=== PATIENT | male | born 1950 | race Caucasian/White ===

== ENCOUNTER → 2023-09-12 10:02 | Outpatient (BNVA) | payer MEDICARE, SELFPAY | PROVIDERS: PCP Family Medicine Adult Medicine; Visit Provider Family Medicine Adult Medicine | DX: E11.69 Type 2 diabetes mellitus with other specified complication (principal); I10 Essential (primary) hypertension; I25.810 Atherosclerosis of coronary artery bypass graft(s) without angina pectoris; E78.5 Hyperlipidemia, unspecified | CPT/HCPCS: 80053; 80061; 83036; 84443; 85025 ==

== ENCOUNTER → 2024-01-24 16:11 | Outpatient (BNVA) | payer MEDICARE, SELFPAY | PROVIDERS: PCP Family Medicine Adult Medicine; Visit Provider Internal Medicine Cardiovascular Disease | DX: R07.9 Chest pain, unspecified (principal) | CPT/HCPCS: 93005; 99205 ==

== ENCOUNTER 2024-02-06 08:23 | Outpatient (CLI) | payer MEDICARE, SELFPAY ==
--- NOTE | 2024-02-06 08:30 | USCV_ITS ---
Isaias Mingo Age: 73 Gender: M : 1950 Exam Date: 02/06/2024 08:53 Ordering Phys: Agatha Cardozo MD ([email or web address]) Technologist: ANUJ [place] [facility] [place]: murmur BP: 94 / 62 HR: 77 Rhythm: Sinus Technical Quality: Adequate MEASUREMENTS (Male / Female) Normal Values 2D ECHO LV Diastolic Diameter PLAX 4.9 cm 4.2 - 5.9 / 3.9 - 5.3 cm IVS Diastolic Thickness 1.0 cm 0.6 - 1.0 / 0.6 - 0.9 cm IVS Systolic Thickness 1.9 cm LVPW Diastolic Thickness 1.3 cm 0.6 - 1.0 / 0.6 - 0.9 cm LVPW Systolic Thickness 2.1 cm LVOT Diameter 2.0 cm LV Ejection Fraction 2D Teich 59.7 % LV Ejection Fraction MOD 4C 31.3 % LV Ejection Fraction MOD 2C 50.3 % LV Ejection Fraction 2C AL 53.7 % LA Diameter 3.9 cm RA Systolic Volume 4C AL 17.6 ml RA Systolic Volume 4C MOD 16.6 ml LA Sys Volume AL 28.1 cm cubed LA Sys Volume Index AL 12.2 cm cubed/m squared Aorta at Sinotubular Diameter 2.6 cm IVC Diameter 1.5 cm M-MODE LA Ao Ratio MM 1.3 AV Cusp Separation MM 1.7 cm DOPPLER AV Peak Velocity 90.0 cm/s LVOT Peak Velocity 83.0 cm/s AV Area Cont Eq vti 2.7 cm squared AV Area Cont Eq pk 2.9 cm squared MV Peak Velocity 109.0 cm/s MV Area PHT 4.7 cm squared Mitral E to A Ratio 0.7 TR Peak Velocity 108.0 cm/s TR Peak Gradient 4.7 mmHg TR Mean Velocity 83.0 cm/s TR Mean Gradient 3.1 mmHg TR Velocity Time Integral 30.5 cm TV Peak E Velocity 55.0 cm/s Right Atrial Pressure 3.0 mmHg Pulmonary Artery Systolic Pressu 7.7 mmHg PV Peak Velocity 98.0 cm/s RV Ejection Time 0.3 s FINDINGS Left Ventricle Mild diffuse hypokinesis of the left ventricle with an ejection fraction of 50%. Mild concentric left-ventricular hypertrophy.Grade I/IV diastolic dysfunction (abnormal relaxation filling pattern), normal to mildly elevated filling pressures. Right Ventricle The right ventricle is normal in size and function. Right Atrium The right atrium is normal in size. Left Atrium Mildly increased left atrial size. Mitral Valve Trace mitral valve regurgitation. Aortic Valve No gross abnormalities noted Tricuspid Valve No gross abnormalities noted Pulmonic Valve Pulmonic valve not well visualized. Pericardium Normal pericardium without effusion. Aorta Normal ascending aorta dimension. IVC Normal inferior vena cava. CONCLUSIONS Mild diffuse hypokinesis of the left ventricle with an ejection fraction of 50%. Mild concentric left-ventricular hypertrophy.Grade I/IV diastolic dysfunction (abnormal relaxation filling pattern), normal to mildly elevated filling pressures. Mildly increased left atrial size. Trace mitral valve regurgitation. There is no pericardial effusion. There are no intracardiac masses. No similar previous studies are available for comparison Dr Agatha Cardozo MD [facility] (Electronically Signed) Final Date: 09 February 2024 20:33 S
== END 2024-02-06 08:24 | disposition home or self-care (01) ==
LOC: RAD 08:23
PROVIDERS: PCP Family Medicine Adult Medicine; Visit Provider Internal Medicine Cardiovascular Disease
DX: I50.30 Unspecified diastolic (congestive) heart failure (principal); R06.09 Other forms of dyspnea
CPT/HCPCS: 93306

== ENCOUNTER 2024-03-13 07:21 | Outpatient (CLI) | payer MEDICARE, SELFPAY ==
--- NOTE | 2024-03-13 | ECG_ITS ---
[facility] Test Date: 2024-03-13 Pat Name: Mingo Esparza Department: Room: Gender: Male Perianesthesia Nurse: : 1950 Requested By: Agatha Cardozo Order Number: [id number] Demetrius MD: John Regan M.D. Interpretive Statements LEXISCAN Procedure: At the baseline, the blood pressure was 138/77 mmHg with a heart rate of 75 bpm. The electrocardiogram showed normal sinus rhythm, normal axis with baseline ST depressions in inferior leads and leads V5 and V6. The Lexiscan was infused over a period of 20 seconds. A total of 0.4 mg of Lexiscan was infused. The stress phase was continued for a total of 5 minutes. Heart rate was at the end of stress phase was 84 bpm and a blood pressure of 142/73 mmHg. The EKG at the peak infusion revealed normal sinus rhythm with no significant ST-T wave changes. Sestamibi was injected 20 seconds after the Lexiscan infusion. Blood pressure at the end of recovery phase was 118/66 mmHg with a heart rate of 81 bpm. Conclusion: 1. Normal EKG response to Lexiscan infusion 2. No Lexiscan induced chest pain or cardiac arrhythmia. 3. Normal blood pressure and heart rate response. 4. Sestamibi/sestamibi perfusion scan pending; see separate report. Electronically Signed On 03-22-2024 14:20:59 CDT by John Regan M.D. [id number]
[2024-03-13 07:25] VITALS: BMI 33.3
--- NOTE | 2024-03-13 08:20 | NMCV_ITS ---
NM louis perf SPECT r/s* [id number] Mingo Esparza Age: 73 Gender: M : 1950 Exam Date: 03/13/2024 08:09 Ordering Phys: Agatha Cardozo MD ([email or web address]) Technologist: GIOVANY West Exam Location: [facility] Indications: CP, CAD STRESS TEST [facility] IMAGE PROTOCOL Rest/Stress 1 Lexiscan Day Radiopharmaceutical Dose (mCi) Administration Site Administered by Rest: Tc-99m 10.9 IV GIOVANY West Sestamibi Stress:Tc-99m 32.9 IV GIOVANY West Sestamibi Rest: 13-Mar-2024 60 Discovery 630 Stress: 13-Mar-2024 30 Discovery 630 0.4mg Lexiscan. Images obtained in supine and prone position. SPECT RESULTS Technical Quality: Good Raw Data Analysis: Normal Image Corrections: No attenuation or motion correction applied Summed Stress Score: 28 Summed Rest Score: 10 Summed Difference Score: 18 PERFUSION FINDINGS There is severe in intensity, large area of reversible perfusion defect seen in lateral wall. This is consistent with large area of ischemia seen in left circumflex artery territory. There is a large area of mostly reversible perfusion defect seen in mid anterior and apical anterior wall. This is consistent with medium sized area of large area of ischemia in LAD territory. Medium sized area of partially reversible perfusion defect is seen in inferior wall. This is consistent with medium sized area of prior infarct with some drake-infarct ischemia in RCA territory. FUNCTIONAL RESULTS (calculated via Gated SPECT) Stress Image LV EF (%): 38 Stress EDV (mL):106 TID: 1.25 Stress ESV (mL):66 FUNCTIONAL FINDINGS: LV systolic function is moderately reduced. TID ratio is elevated at 1.25. IMPRESSIONS 1. Abnormal myocardial perfusion imaging consistent with multivessel coronary artery disease. 2. Large area of ischemia is seen in left circumflex artery territory. 3. Large area of ischemia seen in LAD territory. 4. Medium sized area of prior infarct with some drake-infarct ischemia in RCA territory. 5. LV systolic function is moderately reduced with EF of 38%. 6. TID ratio is elevated at 1.25. This likely represents multivessel coronary artery disease. John Regan MD (Electronically Signed) Final Date: 13 March 2024 11:45 S
[2024-03-13] MEDS: regadenoson 0.4 Mg/5 ml Syringe IVP (09:05)
[2024-03-13 09:21] VITALS: BP 112/64; PULSE 65
== END 2024-03-13 07:22 | disposition home or self-care (01) ==
PROVIDERS: PCP Family Medicine Adult Medicine; Visit Provider Internal Medicine Cardiovascular Disease
DX: Z98.61 Coronary angioplasty status (principal); R94.39 Abnormal result of other cardiovascular function study; I50.20 Unspecified systolic (congestive) heart failure
CPT/HCPCS: 36415; 78452; 93017; 96374; A9500; J2785

== ENCOUNTER 2024-03-19 06:02 | Outpatient (CLI) | payer MEDICARE, SELFPAY ==
[2024-03-19] VITALS (26 sets, daily range): BP systolic 116–151; BP diastolic 58–89; PULSE 55–83; RESP 8–24; TEMP 36.4–36.7; O2SAT 95–99; BMI 35.1
--- NOTE | 2024-03-19 06:00 | XACV_ITS ---
Exam Room: 2 Ht: 175 cm Wt: 108 kg BSA: 2.33 m2 Gender: Male : 1950 Any Known Allergies: Other Exam Priority: Routine Procedure(s): Procedure Description: Diagnostic procedure Procedure Description: Venous Graft Catheterization Procedure Description: Coronary Angiography Cas SHORT; Diagnostic Cath Status: Elective Diagnostic Findings * INDICATION: Worsening angina/ abnormal stress test. * Left Main has mild luminal irregularities. * Left Anterior Descending has patent prior stents. * Proximal Right Coronary Artery: chronic total occlusion, FELIX: 0 flow. Distal vessel has collateral blood supply via LAD. * Proximal Circumflex to Mid Circumflex: chronic total occlusion, FELIX: 0 flow. * Bypass Grafts: SVG to LAD is occluded. SVG to left circumflex artery is occluded. SVG to RCA is occluded.. * Proximal Circumflex: subtotal occlusion, FELIX: 1 flow. * Coronary angiography shows right dominance. Conclusions 1. Only patent blood supply is from LAD which has multiple stents. Collaterals to other territories. SVG grafts to all territories are occluded.. 2. Peripheral artery disease noted on femoral angigoram with left SFA appears occluded. Outpatient workup. 3. Patient has prior CABG. Recommendations * Aggressive medical therapy. Can uptitrate antianginal medications. Pressures Phase:Rest AO : 141 / 68 ( 92 ) @ 10:22:00 AM 93 / 61 ( 76 ) @ 10:22:00 AM 109 / 72 ( 91 ) @ 10:27:00 AM Clinical Evaluation EBL: 5mL-10mL Procedural Details Procedure Consent Obtained. Current Diagnosis : Chest Pain. Pre-Procedure Time Out. Identified patient by full name and date of as verbalized by the patient/guarantor. Does the consent match the physician's order: Yes. Accurate & Complete Informed Consent: Yes. Inpatient/Outpatient History & Physical on Chart: Yes. If H&P is completed, is and addenduem needed: No; If yes, is the addendum complete: N/A. Visualize and Verify Site with Patient/Guarantor: N/A. Relevant Radiology Images available: Yes. Pre-op teaching completed and patient verbalized understanding. The risks, benefits, and alternatives of sedation and/or procedure were discussed by physician. The patient agrees to continue. Procedure started. [facility] Clinical Fraility Score: 3: Managing Well. 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 Chest Pain Symptom Assessment: Atypical Angina. Correct patient, site and procedure confirmed by cath team. Current diagnosis: Chest Pain. PERRLA. Strong, equal hand assistant director of security bilaterally. Lungs clear x 5 lobes. IV Site on Arrival: 20 gauge in the left forearm. IV Fluids: 0.9% NaCl at KVO. 0 mL infused prior to rags laborer. Pre Procedural Pulses: bilateral dorsalis pedis was Doppled. Pre Procedural Pulses: bilateral posterior tibial was Doppled. Pre Procedural Pulses: bilateral radial was 3+. Oxygen started at 2liters/min via nasal canula. bilateral groins was prepped with chloroprep then draped in the usual sterile fashion. Physician arrived. SVG to RCA occluded. Physician scrubbed in. Immediate Pre-Procedure Time Out. Correct Patient: Yes; Correct Procedure: Yes; Correct Site: Yes; Correct Patient Position: Yes; Correct Supplies: Yes; Dried Flammable Prep: Yes; Blood Products Available: N/A;. Lidocaine 1% infiltrated to the right groin. Arterial access obtained with micropuncture set. Wire unable to advance. Wire and needle out. Arterial access obtained with micropuncture set. Contrast injected through the access needle. Wire unable to advance. Wire and needle out. Dr. Regan assisting with arterial access. Ultrasound being used to obtain arterial access. Lidocaine 1% infiltrated to the left groin. Arterial access obtained with micropuncture set. Dr. Cardozo scrubbed out. A 5 malian JL4 catheter in over wire. Multiple views taken of left coronary artery. Catheter removed over the standard wire. A 5 malian JR4 catheter in over wire. Multiple views taken of right coronary artery. SVG to LAD occluded. SVG to OM occluded. Catheter removed over the standard wire. A Left femoral angiogram was performed to determine safe placement of closure device. A Mynx was successful obtaining hemostatsis at the Left Femoral artery insertion site. Post Procedure: Pulses reassessed and unchanged. PERRLA. Strong, equal hand assistant director of security bilaterally. No VTE prophylaxis required. Medication's Wasted: Heparin = 6000 units. Total IV fluids: 200 mL. Complications: None. Post-op diagnosis: CAD. Estimated blood loss: 5mL-10mL. Responsiveness - Normal response to verbal stimuli; alert and oriented, PERRLA. Airway - Unaffected, no intervention required; spontaneous ventilation. Circulation: W/N/L, pulses unchanged. Nausea/Vomiting: No. Vital chart was stopped. Procedure completed. Patient transferred by bed to ICU. Access Site Site: Left Femoral artery Sheath Size: 6 Fr Hemostasis Method: Mynx Hemostasis Success: Successful Procedure Medications Start: 8:47 AM Stop: 8:47 AM Medication: Fentanyl Amount: 50 mcg Route: I.V. Start: 8:56 AM Stop: 8:56 AM Medication: 0.9% Saline Amount: 150 ml/hr Route: I.V. drip Start: 8:47 AM Stop: 8:47 AM Medication: Versed Amount: 1 mg Route: I.V. Start: 9:29 AM Stop: 9:29 AM Medication: Versed Amount: 1 mg Route: I.V. Start: 9:30 AM Stop: 9:30 AM Medication: Fentanyl Amount: 50 mcg Route: I.V. I, the attending physician, have reviewed and verified all procedure medications. Yes, all medications given per verbal order History/Risk Factors Hypertension: Yes Dyslipidemia: Yes Peripheral Arterial Disease (PAD): No Myocardial Infarction (ID): No Obesity: No Tobacco Use: Former Prior Interventions PCI: Yes CABG: Yes Valve Surgery: No Report Signatures Finalized by John Regan MD on 03/24/2024 12:37 PM
[2024-03-19] MEDS: diphenhydrAMINE 50 mg Capsule PO (06:30)
[2024-03-19] MEDS: aspirin 325 mg Tablet PO (06:30)
[2024-03-19 06:33] LABS: Basophils # 0.1 10^3/uL (0.0-0.1); Basophils % 0.9 %; Eosinophils # 0.3 10^3/uL (0.0-0.8); Eosinophils % 3.1 %; Hematocrit 50.4 % (37-53); Lymphocytes # 2.4 10^3/uL (0.8-4.8); Lymphocytes % 27.4 %; Mean Corpuscular HGB Conc 31.5 g/dL (30-55); Mean Corpuscular Volume 88.7 fl (82-101); Mean Platelet Volume 9.4 fL (7.4-10.4); Monocytes # 0.9 10^3/uL (0.2-0.9); Monocytes % 10.1 %; Neutrophils # 5.11 10^3/uL (1.8-7.7); Neutrophils % 58.3 %; Nucleated Red Blood Cells % 0 %; Platelet Count 286 10^3/cmm (157-399); Red Blood Count 5.68 10^6/uL (3.85-5.65); Red Cell Distribution Width 13.7 % (12.1-15.1); White Blood Count 8.77 10^3/uL (3.29-11.43)
[2024-03-19 06:41] LABS: Anion Gap 19.5 (5-19); Blood Urea Nitrogen 25 mg/dL (8-23); Calcium 9.5 mg/dL (8.5-10.5); Carbon Dioxide 20 mmol/L (22-29); Chloride 104 mmol/L (98-107); Glucose 145 mg/dL (65-115); Osmolality Calculated 295 mOsm/kg (285-295); Potassium 4.5 mmol/L (3.5-5.1); Sodium 139 mmol/L (136-145)
--- NOTE | 2024-03-19 08:11 | P.HP_ITS ---
Providers/Chief Complaint 2 Admitting Physician: ANDRE Cardozo MD Primary Care Provider: Dawit Mcallister MD Chief Complaint: R94.34 History of Present Illness Mingo Esparza is a 73 year old male with a history of atherosclerotic heart disease, status post four-vessel coronary artery bypass surgery, status post multiple PCI, total of 7 stents, presented with increasing episodes of chest pain. He had a Myocardial perfusion imaging on 03/13/2024. He was found to have features of multivessel coronary disease. The Myocardial perfusion imaging findings are as follows 1. Abnormal myocardial perfusion imaging consistent with multivessel coronary artery disease. 2. Large area of ischemia is seen in left circumflex artery territory. 3. Large area of ischemia seen in LAD territory. 4. Medium sized area of prior infarct with some drake-infarct ischemia in RCA territory. 5. LV systolic function is moderately reduced with EF of 38%. 6. TID ratio is elevated at 1.25. This likely represents multivessel coronary artery disease. Patient had the most recent cardiac catheterization on 11/13/2021 at the [facility] in [place], [place]. At that time, he was found to have total occlusion of the venous graft to the left and descending artery and the right coronary artery. Patent stent in the left main extending into the left anterior descending artery. Grade 2 collaterals to the right coronary artery from the distal LAD through septal perforators. He had a high-grade in stent stenosis in the venous graft to the obtuse marginal artery. He underwent primary stenting of this lesion with 3.0 x 24 mm Synergy drug-eluting stent. The LV ejection fraction was 55%. LVEDP of 16 mmHg. In view of the patient's ongoing symptoms, in order to further evaluate the coronary status as well as the graft status, a repeat cardiac catheterization was recommended. This patient is known to have high blood pressure, type 2 diabetes, dyslipidemia and chronic kidney disease. Review of Systems 2 Narrative: CONSTITUTIONAL: No fever or chills. EYES: No blurring of vision or other visual disturbances lately. ENT: No hoarseness of voice, auditory disturbances or sore throat. CARDIOVASCULAR: As mentioned above. RESPIRATORY: No significant cough. GASTROINTESTINAL: No hematemesis or melena. GENITOURINARY: History of chronic kidney disease INTEGUMENTARY: No skin rashes or history of skin cancer. NEURO: No transient ischemic attacks or amaurosis. PSYCHIATRIC: No history of psychosis or major depression. HEMATOLOGIC: No bleeding disorders or significant anemia. ENDOCRINE: No history of polyuria or polydipsia. MUSCULOSKELETAL: No recent joint pain or swelling. ALLERGY/IMMUNOLOGY: As mentioned above. Medications/Allergies Home Medications Medication Instructions Recorded Confirmed Last Taken Type aspirin 81 mg tablet,delayed 81 mg PO DAILY 09/12/23 03/19/24 03/18/24 19:30 History release atorvastatin 40 mg tablet 40 mg PO DAILY 09/12/23 03/19/24 03/18/24 19:30 History lisinopril 10 mg tablet 10 mg PO DAILY 09/12/23 03/19/24 03/17/24 09:00 History multivitamin 1 tab PO DAILY 09/12/23 03/19/24 03/18/24 09:00 History vitamin E (dl, acetate) 450 mg 450 mg PO DAILY 09/12/23 03/19/24 03/18/24 09:00 History (1,000 unit) capsule isosorbide mononitrate 30 mg 30 mg PO BID #60 tabs 10/10/23 03/19/24 03/19/24 05:15 Rx tablet,extended release 24 hr metoprolol tartrate 50 mg tablet 50 mg PO BID #180 tabs 10/11/23 03/19/24 03/19/24 05:15 Rx ticagrelor 90 mg tablet 90 mg PO BID circulation #180 tabs 10/24/23 03/19/24 03/19/24 05:15 Rx nitroglycerin 0.4 mg sublingual 0.4 mg sublingual Q5M PRN chest 12/07/23 03/18/24 Unknown Rx tablet pain #10 tabs metformin 500 mg tablet 1,000 mg (2 x 500 mg) PO BID #180 01/04/24 03/18/24 03/16/24 Rx tabs tirzepatide 10 mg/0.5 mL 10 mg (0.5 mL) SUBCUT .once weekly 01/10/24 03/18/24 03/16/24 Rx subcutaneous pen injector #2 mL empagliflozin 25 mg tablet 25 mg PO DAILY diabetes #90 tabs 03/12/24 03/19/24 03/17/24 09:00 Rx cyanocobalamin (vitamin B-12) 1,000 mcg PO DAILY 08/03/19/24 03/18/24 09:00 History 1,000 mcg tablet (Vitamin B-12) Allergies Allergy/AdvReac Type Severity Reaction Status Date / Time niacin Allergy ALGY-Redness Verified 03/13/24 07:27 of Skin PFSH Acute 2 PFSH: Medical History Angina at rest CKD stage 2 due to type 2 diabetes mellitus Diabetes type 2, controlled Carpal tunnel syndrome, right Dyslipidemia associated with type 2 diabetes mellitus Coronary artery disease involving autologous artery coronary bypass graft Hypertension Surgical History S/P cervical discectomy Hx of cholecystectomy H/O heart bypass surgery Family History Father Cancer Breast Cancer Mother COPD (chronic obstructive pulmonary disease) Social History Smoking and tobacco/nicotine status: former use of tobacco/nicotine Second hand smoke exposure: No Alcohol intake: current Alcohol intake frequency: holidays/special occasions only Substance/Drug Use: never Adopted: No Caregiver/support person: No Lives independently: Yes Household members: spouse Housing: House Marital status: Number of children: 2 service: No Current occupational status: retired Current occupational exposures/hazards: No Pets and animals: No Do you think of yourself as: Straight/Heterosexual Current gender identity: Male Vitals/I&O/Wt Last Vital Signs Temp 98.1 F 03/19/24 06:38 Pulse 83 03/19/24 06:38 Resp 18 03/19/24 06:38 BP 151/74 03/19/24 06:38 Pulse Ox 97 03/19/24 06:38 O2 Del Method Room Air 03/19/24 06:38 Weight last 48 hrs Weight 238 lb Physical Exam 2 Narrative: GENERAL: The patient is alert and oriented times three. Not in any acute distress. HEENT: No significant pallor, icterus or lymphadenopathy.Oral cavity: There are no mucous membrane lesions. NECK: Trachea appears to be central. No masses noted. No JVD or thyromegaly appreciated. RESPIRATORY: Chest is symmetrical. No intercostals muscle retraction or any accessory muscle activation. There is no chest wall tenderness. Breath sounds are heard bilaterally. No rales or rhonchi heard. No evidence of any consolidation. BREASTS: Deferred. HEART: The heart sounds are normal. No S3 or S4. Short systolic murmur at the left border. No diastolic murmurs. No pericardial rub ABDOMEN: No vessel pulsations or distention. No tenderness. No organomegaly appreciated. Bowel sounds are normally heard. : Deferred. RECTAL: Deferred. LYMPHATIC: No lymphadenopathy noted in the neck. EXTREMITIES: Markedly diminished pulses bilaterally, both femoral, dorsalis pedis and posterior tibial MUSCULOSKELETAL: No acute joint deformities or swelling SKIN: There are no significant rashes or ecchymosis NEUROPSYCHIATRIC: The patient is alert and oriented x3. Appears to be in a good mood. No tremors or rigidity noted. Data 03/19/24 06:20 03/19/24 06:20 Other Imaging: My impression: Myocardial perfusion imaging on 03/13/2024 1. Abnormal myocardial perfusion imaging consistent with multivessel coronary artery disease. 2. Large area of ischemia is seen in left circumflex artery territory. 3. Large area of ischemia seen in LAD territory. 4. Medium sized area of prior infarct with some drake-infarct ischemia in RCA territory. 5. LV systolic function is moderately reduced with EF of 38%. 6. TID ratio is elevated at 1.25. This likely represents multivessel coronary artery disease. A&P Assessment and plan (1) Coronary artery disease involving autologous artery coronary bypass graft: Recent angiogram findings as mentioned above. Possibility of restenosis of the left main/LAD and venous graft to circumflex are considerations. Qualifiers: Associated angina: with stable angina Qualified Code(s): I25.728 - Atherosclerosis of autologous artery coronary artery bypass graft(s) with other forms of angina pectoris (2) Dyslipidemia associated with type 2 diabetes mellitus: Continue on the current management (3) Angina at rest: Continue on the current medication for the time being. (4) Hypertension: Blood pressure is stage II. Will optimize antihypertensive medications. Qualifiers: Hypertension type: renovascular hypertension Qualified Code(s): I15.0 - Renovascular hypertension (5) Diabetes type 2, controlled: Qualifiers: Diabetes mellitus complication status: without complication Diabetes mellitus fdc insulin use: without middle or intermediate school principal use Qualified Code(s): E11.9 - Type 2 diabetes mellitus without complications (6) CKD stage 2 due to type 2 diabetes mellitus: Patient will be carefully hydrated preoperatively. (7) Peripheral arterial disease: Patient has significant PAD and a very weak pulses in both lower extremities Plan Schedule for cardiac catheterization today. The risk of bleeding, hematoma, vascular injury, myocardial infarction, myocardial perforation, malignant cardiac arrhythmias ,CVA, renal failure and other concomitant complications were explained in detail. He carries an increased risk for contrast-induced nephropathy because of the chronic kidney disease. Also because of the severe peripheral artery disease, the femoral artery access could be difficult. If that happens, we may have to postpone the procedure. Patient seems to understand these issues well Based on the angiogram findings, further recommendations will be made Attestations 2 Medical Necessity Statement*: Patient may require an overnight stay. Coding Level of Care Code 37522 Diagnoses Coronary artery disease of autologous bypass graft with stable angina pectoris I25.728 Associated angina: with stable angina Dyslipidemia associated with type 2 diabetes mellitus E11.69; E78.5 Angina at rest I20.89 Renovascular hypertension I15.0 Hypertension type: renovascular hypertension Controlled type 2 diabetes mellitus without complication, without long-term current use of insulin E11.9 Diabetes mellitus complication status: without complication Diabetes mellitus fdc insulin use: without middle or intermediate school principal use CKD stage 2 due to type 2 diabetes mellitus E11.22; N18.2 Peripheral arterial disease I73.9
--- NOTE | 2024-03-19 08:20 | P.HPUD_ITS ---
Surgery/Procedure H&P Update DATE OF PROCEDURE: March 19, 2024 DATE H&P PERFORMED: 03/19/24 H&P UPDATE INFORMATION: I have reviewed H&P completed within last 30 days, I have examined patient prior to procedure and No changes to prior documentation PREOP DIAGNOSIS: ASHD, possible restenosis of the stented segments PRIMARY INDICATION FOR PROCEDURE: Ongoing recurrent episodes of chest pain. Abnormal Myocardial perfusion imaging. PLANNED PROCEDURE: Operation Date: 03/19/24 07:00 Proposed Procedures p Cardiac Catheterization - [facility](Left) - Agatha Cardozo MD PATIENT REASSESSED PRIOR TO SEDATION, WITH NO CHANGE NOTED: Yes PHYSICAL EXAM: oriented x 3, clear to auscultation bilaterally and regular rate & rhythm AIRWAY EVAL/ANESTHESIA PLAN: normal airway, see other exam findings, ASA III, Monitored Anesthesia, Local Anesthesia, Risks, benefits & alternatives of sedation and/or procedure discussed and Patient agrees to continue as planned
--- NOTE | 2024-03-19 16:07 | PC.NURSE ---
Patients bedrest up at 1400. Patient ambulated with staff. No s/s of bleeding.
--- NOTE | 2024-03-19 17:14 | PC.NURSE ---
Patient received discharge orders. Patients IV removed. Prescriptions sent to preferred pharmacy. All instructions and restrictions explained to patient who verbalized understanding.
--- NOTE | 2024-03-19 17:26 | PC.NURSE ---
Patient taken via w/c do main exit at [id number] with staff
== END 2024-03-19 17:22 | disposition home or self-care (01) ==
LOC: CCL 06:06 → ICU 16:20
PROVIDERS: Internal Medicine; PCP Family Medicine Adult Medicine; Visit Provider Internal Medicine Cardiovascular Disease
DX: I25.728 Atherosclerosis of autologous artery coronary artery bypass graft(s) with other forms of angina pectoris (principal); E11.69 Type 2 diabetes mellitus with other specified complication; I73.9 Peripheral vascular disease, unspecified; E11.22 Type 2 diabetes mellitus with diabetic chronic kidney disease; I12.9 Hypertensive chronic kidney disease with stage 1 through stage 4 chronic kidney disease, or unspecified chronic kidney disease; N18.2 Chronic kidney disease, stage 2 (mild); E78.5 Hyperlipidemia, unspecified; Z95.1 Presence of aortocoronary bypass graft; Z95.5 Presence of coronary angioplasty implant and graft; Z87.891 Personal history of nicotine dependence
CPT/HCPCS: 36415; 80048; 85025; 93455; 96374; 96375; 99152; 99153; C1760; C1769; C1887; C1894; G0269; G0378; J1644; J2250; J3010; J7030; Q0163; Q9967

== ENCOUNTER → 2024-03-27 10:09 | Outpatient (BNVA) | payer MEDICARE, SELFPAY | PROVIDERS: PCP Family Medicine Adult Medicine; Visit Provider Nurse Practitioner Family | DX: I25.728 Atherosclerosis of autologous artery coronary artery bypass graft(s) with other forms of angina pectoris (principal); I73.9 Peripheral vascular disease, unspecified; Z87.891 Personal history of nicotine dependence | CPT/HCPCS: 36415; 80048 ==

== ENCOUNTER → 2024-04-15 14:04 | Outpatient (BNVA) | payer MEDICARE, SELFPAY | PROVIDERS: PCP Family Medicine Adult Medicine; Visit Provider Internal Medicine Cardiovascular Disease | DX: I25.118 Atherosclerotic heart disease of native coronary artery with other forms of angina pectoris (principal); E11.69 Type 2 diabetes mellitus with other specified complication; E78.5 Hyperlipidemia, unspecified; E11.22 Type 2 diabetes mellitus with diabetic chronic kidney disease; I12.9 Hypertensive chronic kidney disease with stage 1 through stage 4 chronic kidney disease, or unspecified chronic kidney disease; N18.2 Chronic kidney disease, stage 2 (mild); I73.9 Peripheral vascular disease, unspecified | CPT/HCPCS: 99214 ==

== ENCOUNTER 2024-04-25 07:07 | Outpatient (CLI) | payer MEDICARE, SELFPAY ==
--- NOTE | 2024-04-25 07:15 | USCV_ITS ---
Mingo Esparza Age: 73 Gender: M : 1950 Exam Date: 04/25/2024 07:30 Ordering Phys: Mansi Ewing Technologist: Leyla Silva Exam Location: [facility] [place] Indication: LE PAIn Risk Factors: Previous Vascular Surgery: RIGHT LEFT Waveform Velocity (cm/s) Velocity (cm/s) Waveform Monophasic 40.9 Iliac Prox 0.9 Monophasic Monophasic 33.9 Iliac Mid 1.1 Monophasic Monophasic 41.3 Iliac Distal 5.3 Monophasic N/A SUBSURFACE AUGMENTEE ELINT OPERATOR N/A N/A SFA Prox N/A N/A SFA Mid N/A N/A SFA Dist 21.0 Monophasic Monophasic 10.0 POP 11.0 Monophasic Monophasic 7.0 FLOWER ARRANGER N/A Monophasic 51.0 DPA 8.0 Monophasic 0.8 VICTOR M 0.6 FINDINGS Resting VICTOR M of 0.8 on the right side and 0.6 on the left side No Doppler flow signals were noted in the femoral artery on the right side. The popliteal, posterior and dorsalis pedis arterial Doppler waveforms were found to be monophasic, continuous and low amplitude on the left side right side. On the left side, no Doppler flow signals were noted in the common femoral, proximal and mid superficial femoral artery segments. Monophasic and continuous Doppler waveforms are noted at the level of the distal SFA, popliteal and dorsalis pedis arteries. No Doppler signals were noted at the level of the posterior tibial artery on the left side. CONCLUSIONS 1. Abnormal resting VICTOR M on the right side, suggesting mild peripheral artery disease. The duplex examination on the right side revealed features of total occlusion of the femoral artery involving the common femoral and the entire superficial femoral artery with collateral filling of the popliteal and infrapopliteal vessels. 2. On the left side, the common femoral, superficial femoral and the mid superficial femoral artery were found to be totally occluded. Features of collateral filling was noted in the distal superficial femoral , popliteal and infrapopliteal vessels. The posttibial artery also appears to be completely occluded. The VICTOR M on the left side was 0.6 suggesting moderate peripheral artery disease No similar previous studies are available for comparison Dr Agatha Cardozo MD [facility] (Electronically Signed) Final Date: 25 April 2024 22:54 S
== END 2024-04-25 07:08 | disposition home or self-care (01) ==
PROVIDERS: PCP Family Medicine Adult Medicine; Visit Provider Nurse Practitioner Family
DX: I25.728 Atherosclerosis of autologous artery coronary artery bypass graft(s) with other forms of angina pectoris (principal); I73.9 Peripheral vascular disease, unspecified
CPT/HCPCS: 93925; 99214

== ENCOUNTER 2024-07-20 02:21 | Inpatient (IN) | payer MEDICARE, SELFPAY ==
[2024-07-20] VITALS (44 sets, daily range): BP systolic 72–127; BP diastolic 47–74; PULSE 64–124; RESP 8–30; TEMP 36.6–37.5; O2SAT 85–100; BMI 32.5
--- NOTE | 2024-07-20 02:26 | XRR_ITS ---
PROCEDURE INFORMATION: Exam: XR Chest Exam date and time: 07/20/2024 2:34 AM Age: 73 years old Clinical indication: Chest pressure; Prior surgery; Surgery date: 6+ months; Surgery type: Cabg. Gb; Patient HX: Chest pain with dyspnea and wheezing. ; Additional info: Dyspnea chest pain TECHNIQUE: Imaging protocol: Radiologic exam of the chest. Views: 1 view. COMPARISON: No relevant prior studies available. FINDINGS: Lungs: Diffuse patchy airspace opacities. Pleural spaces: Blunting of the right costophrenic angle. Heart/Mediastinum: Postprocedural changes mediastinum. Bones/joints: Status post sternotomy. Degenerative changes of the visualized osseous structures. XR/XR chest 1V portable [id number] IMPRESSION: 1. Diffuse patchy airspace opacities which are nonspecific be seen in CHF/pulmonary edema, multifocal pneumonia other infectious/inflammatory conditions. Correlate clinically. 2. Small right pleural effusion.
[2024-07-20] MEDS: LORazepam 2 mg/mL INJ 1 mL 1 MG IVP (02:34)
[2024-07-20 02:40] LABS: ABG PCO2 30.4 mmHg (35-45); ABG PH Result 7.33 (7.35-7.45); Alveolar-Arterial Oxygen Gradi 7.3 mmHg (5-10); Arterial Blood Gas Hematocrit 32.1 % (42-52); Base Excess ABG -8.9 mmol/L (-2.0-2.0); Blood Gas Operator Identificat SAM; Blood Gas Sample Site Brachial, right; Blood Gas Sample Type Arterial; Carboxyhemoglobin 1.5 %THgb (0.4-20.1); HCO3 ABG 15.9 mmol/L (22-26); HGB O2 Sat 85.9 % (95-100); Ionized Calcium Level - ABG 1.1 mmol/L (1.1-1.4); Methemoglobin 0.2 % (0.4-1.5); Oxygen Device NRB; Oxygen Saturation ABG 87.4; PO2 ABG 57.6 mmHg (80.0-100.0); Potassium Level - ABG 3.7 mmol/L (3.5-5.0); Total Hemoglobin 10.5 g/dL (14-18)
[2024-07-20 02:50] LABS: Basophils # 0.1 10^3/uL (0.0-0.1); Basophils % 0.5 %; Eosinophils # 0.4 10^3/uL (0.0-0.8); Eosinophils % 2.5 %; Hematocrit 36.5 % (37-53); Lymphocytes # 2.9 10^3/uL (0.8-4.8); Lymphocytes % 17.8 %; Mean Corpuscular HGB Conc 30.7 g/dL (30-55); Mean Corpuscular Hemoglobin 27.6 pg (27-33); Mean Corpuscular Volume 89.9 fl (82-101); Mean Platelet Volume 10.6 fL (7.4-10.4); Monocytes # 1.7 10^3/uL (0.2-0.9); Monocytes % 10.5 %; Neutrophils # 10.86 10^3/uL (1.8-7.7); Neutrophils % 66.9 %; Nucleated Red Blood Cells # 0.3 /100WBC; Nucleated Red Blood Cells % 2.1 %; Platelet Count 419 10^3/cmm (157-399); Red Blood Count 4.06 10^6/uL (3.85-5.65); Red Cell Distribution Width 17.9 % (12.1-15.1); White Blood Count 16.24 10^3/uL (3.29-11.43)
--- NOTE | 2024-07-20 03:02 | W.ED.SOB ---
HPI - SOB/Dyspnea General: Chief Complaint: Shortness of Breath/Dyspnea Stated Complaint: CHEST PAIN Time Seen by Provider: 07/20/24 02:25 History of Present Illness: HPI Narrative: Patient brought in by EMS from home with complaints of severe shortness of breath and resolved chest pain. Patient was on 15 L on a nonrebreather with an O2 sat of 85% upon arrival. EMS gave him nitro, morphine, aspirin,. Patient unable to provide much history due to his respiratory effort. Family was able to give history. Patient saw Dr. Cas mensah in February and he said that only his LAD was working with multiple stents and it and all of his other CABG grafts have been occluded. He referred him to Dr. Christine Noble in [place] because there is nothing else that can be done here. Dr. Christine Noble said there is nothing that can be done for your heart however he then eventually had a femoropopliteal bypass of his right leg. He was recently discharged from the hospital on hospice for his cardiac disease. He was on a BiPAP in the hospital but did not have a BiPAP at home hospice said they would be able to get him 1 in several days. Family thinks tonight he was getting more short of breath having anxiety and panic attack due to his respiratory status and then developed chest pain. They gave him nitro, morphine, lorazepam, atropine prior to EMSs arrival. They did state again patient is a DNR and DNI. Related Data Home Medications Medication Instructions Recorded Confirmed aspirin 81 mg tablet,delayed 81 mg PO DAILY 09/12/23 04/15/24 release lisinopril 10 mg tablet 10 mg PO DAILY 09/12/23 04/15/24 multivitamin 1 tab PO DAILY 09/12/23 04/15/24 vitamin E (dl, acetate) 450 mg 450 mg PO DAILY 09/12/23 04/15/24 (1,000 unit) capsule cyanocobalamin (vitamin B-12) 1,000 mcg PO DAILY 03/18/24 04/15/24 1,000 mcg tablet (Vitamin B-12) Previous Rx's Medication Instructions Recorded empagliflozin 25 mg tablet 25 mg PO DAILY diabetes #90 tabs 03/12/24 amlodipine 2.5 mg tablet 2.5 mg PO DAILY #90 tabs 03/27/24 atorvastatin 40 mg tablet 40 mg PO DAILY #90 tabs 04/04/24 cilostazol 50 mg tablet 50 mg PO BID #60 tabs 04/15/24 ticagrelor 90 mg tablet 90 mg PO BID circulation #180 tabs 04/16/24 tirzepatide 10 mg/0.5 mL 10 mg (0.5 mL) SUBCUT .once weekly 05/02/24 subcutaneous pen injector #2 mL isosorbide mononitrate 120 mg 120 mg PO DAILY #90 tabs 05/23/24 tablet,extended release 24 hr metformin 500 mg tablet 1,000 mg (2 x 500 mg) PO BID #180 06/24/24 tabs metoprolol tartrate 50 mg tablet 50 mg PO BID #180 tabs 06/28/24 nitroglycerin 0.4 mg sublingual 0.4 mg sublingual Q5M PRN chest 07/08/24 tablet pain #10 tabs Allergies Allergy/AdvReac Type Severity Reaction Status Date / Time niacin Allergy ALGY-Redness Verified 04/15/24 14:21 of Skin ranolazine AdvReac Intermediate ALGY-Joint Verified 04/15/24 14:21 Pain Review of Systems General: Reports: ROS unobtainable due to medical condition PFSH ED PFSH: Medical History Angina at rest CKD stage 2 due to type 2 diabetes mellitus Diabetes type 2, controlled Carpal tunnel syndrome, right Dyslipidemia associated with type 2 diabetes mellitus Coronary artery disease involving autologous artery coronary bypass graft Hypertension Surgical History S/P cervical discectomy Hx of cholecystectomy H/O heart bypass surgery Family History Father Cancer Breast Cancer Mother COPD (chronic obstructive pulmonary disease) Social History Smoking and tobacco/nicotine status: former use of tobacco/nicotine Second hand smoke exposure: No Alcohol intake: current Alcohol intake frequency: holidays/special occasions only Substance/Drug Use: never Adopted: No Caregiver/support person: No Lives independently: Yes Household members: spouse Housing: House Marital status: Number of children: 2 service: No Current occupational status: retired Current occupational exposures/hazards: No Pets and animals: No Do you think of yourself as: Straight/Heterosexual Current gender identity: Male Physical Exam Const: COMMON NORMALS: patient oriented x3, alert and well nourished; apparent distress (Respiratory distress) HENMT: COMMON NORMALS: normocephalic, atraumatic, hearing grossly normal bilaterally, external ears normal, Normal external nose present and moist oral mucous membranes HEAD & SCALP: normocephalic and atraumatic NOSE: Normal external nose present EXTERNAL EAR: Yes external ears normal Eye: COMMON NORMALS: Equal, round and reactive pupils present, EOMs intact bilaterally, conjunctivae normal and no scleral icterus CONJUNCTIVA: Yes conjunctivae normal PUPIL: Yes Equal, round and reactive pupils present Neck/C-Spine: COMMON NORMALS: full ROM, no lymphadenopathy, supple, no meningeal signs, no JVD and Thyroid normal THYROID: Thyroid normal Chest: COMMONS NORMALS: normal inspection of the chest and normal palpation of entire chest wall Resp: COMMON NORMALS: No retractions; negative for normal respiratory effort (Increased respiratory effort, tachypnea) and negative for clear to auscultation bilaterally (Diffuse rhonchi/Rales,) AUSCULTATION: not clear to auscultation bilaterally (Diffuse rhonchi/Rales,) Cardio: COMMON NORMALS: no JVD, regular rhythm, S1 normal heart sound present, S2 normal heart sound present, No gallops present (Cardio) and No murmurs present (Cardio); negative for regular rate (Tachycardic) RATE: abnormal rate (Tachycardic) RHYTHM: regular rhythm HEART SOUNDS: S1 normal heart sound present and S2 normal heart sound present GI: COMMON NORMALS: Normal to inspection, nondistended, normoactive bowel sounds present, Soft to palpation, non-tender, No hepatosplenomegaly present and no masses PALPATION: Yes Soft to palpation and Yes No hepatosplenomegaly present : OTHER: Baker catheter in place Extremity: NARRATIVE EXTREMITY EXAM: 2 drains and bandage on right inner thigh, 1+ bilateral pretibial pitting edema Neuro: COMMON NORMALS: patient oriented x3 SENSORIUM/ORIENTATION: Yes alert MENINGEAL SIGNS: Yes no meningeal signs Course Vital Signs: Vital signs: Vital Signs Temperature 99.5 F 07/20/24 02:24 Pulse Rate 119 H 07/20/24 02:48 Respiratory Rate 30 H 07/20/24 02:24 Blood Pressure 127/69 07/20/24 02:24 Pulse Oximetry 99 07/20/24 02:48 Oxygen Delivery Me thod Non-Rebreather 07/20/24 02:24 Oxygen Flow Rate 15 07/20/24 02:24 Fraction of Inspir ed Oxygen 100 07/20/24 02:48 MDM - SOB/Dyspnea Medical Decision Making Patient is a DNR/DNI, patient upon arrival was immediately placed on BiPAP while lab work was being obtained. Chest x-ray showed diffuse patchy airspace opacities may be seen with CHF pulmonary edema pneumonia, small right pleural effusion, elevated white count of 16,000, INR 1.72, D-dimer 3.56, BUN/creatinine 54 2.3, troponin initial 1130, BNP 12,813, total bilirubin 2.1, these results as well as he first 2 EKGs were sent to Dr. Almonte and discussed with him since patient is on hospice and nonsurgical/stentable candidate per notes only treatment we could do is heparin drip, this was discussed with the family. We will place the patient on heparin drip, Dr. Cedillo has been consulted and will see the patient in the ER. Medical Records I reviewed the patient's medical records. Lab Data I reviewed the patient's lab results. 07/20/24 02:24 07/20/24 02:24 Labs/Radiology: Radiology Impressions Chest X-Ray 07/20/24 02:26 IMPRESSION: 1. Diffuse patchy airspace opacities which are nonspecific be seen in CHF/pulmonary edema, multifocal pneumonia other infectious/inflammatory conditions. Correlate clinically. 2. Small right pleural effusion. Laboratory Results WBC 16.24 10^3/uL (3.29-11.43) H 07/20/24 02:24 RBC 4.06 10^6/uL (3.85-5.65) 07/20/24 02:24 Hgb 11.20 g/dL (11.27-16.99) L 07/20/24 02:24 Hct 36.5 % (37-53) L 07/20/24 02:24 MCV 89.9 fl (82-101) 07/20/24 02:24 MCH 27.6 pg (27-33) 07/20/24 02:24 MCHC 30.7 g/dL (30-55) 07/20/24 02:24 RDW 17.9 % (12.1-15.1) H 07/20/24 02:24 Plt Count 419 10^3/cmm (157-399) H 07/20/24 02:24 MPV 10.6 fL (7.4-10.4) H 07/20/24 02:24 Neut % (Auto) 66.9 % 07/20/24 02:24 Lymph % (Auto) 17.8 % 07/20/24 02:24 [place] % (Auto) 10.5 % 07/20/24 02:24 Eos % (Auto) 2.5 % 07/20/24 02:24 Baso % (Auto) 0.5 % 07/20/24 02:24 Neut # (Auto) 10.86 10^3/uL (1.8-7.7) H 07/20/24 02:24 Lymph # (Auto) 2.9 10^3/uL (0.8-4.8) 07/20/24 02:24 [place] # (Auto) 1.7 10^3/uL (0.2-0.9) H 07/20/24 02:24 Eos # (Auto) 0.4 10^3/uL (0.0-0.8) 07/20/24 02:24 Baso # (Auto) 0.1 10^3/uL (0.0-0.1) 07/20/24 02:24 Nucleated RBC % (auto) 2.1 % 07/20/24 02:24 Nucleated RBCs # 0.3 /100WBC 07/20/24 02:24 PT 20.80 SECONDS (12.1-14.9) H 07/20/24 02:24 INR 1.72 (0.8-1.2) H 07/20/24 02:24 D-Dimer 3.56 ug/mLFEU (0-0.59) H 07/20/24 02:24 Specimen Type Arterial 07/20/24 02:29 Sample Site Brachial, right 07/20/24 02: ABG pH 7.33 (7.35-7.45) L 07/20/24 02: ABG pCO2 30.4 mmHg (35-45) L 07/20/24 02:29 ABG pO2 57.6 mmHg (80.0-100.0) L 07/20/24 02:29 ABG HCO3 15.9 mmol/L (22-26) L 07/20/24 02:29 ABG O2 Saturation 87.4 07/20/24 02:29 ABG Base Excess -8.9 mmol/L (-2.0-2.0) L 07/20/24 02:29 Jared Test N/a 07/20/24 02:29 A-a O2 Gradient 7.3 mmHg (5-10) 07/20/24 02:29 Hematocrit 32.1 % (42-52) L 07/20/24 02:29 Hgb O2 Saturation 85.9 % (95-100) L 07/20/24 02:29 Carboxyhemoglobin 1.5 %THgb (0.4-20.1) 07/20/24 02:29 Methemoglobin 0.2 % (0.4-1.5) L 07/20/24 02:29 Total Hemoglobin 10.5 g/dL (14-18) L 07/20/24 02:29 Sodium 132.0 mmol/L (131-143) 07/20/24 02:29 Potassium 3.7 mmol/L (3.5-5.0) 07/20/24 02:29 Glucose 190.0 mg/dL (70-115) H 07/20/24 02:29 Ionized Calcium 1.1 mmol/L (1.1-1.4) 07/20/24 02:29 O2 Delivery Device Nrb 07/20/24 02:29 O2 Liters/Min 15.0 % 07/20/24 02:29 Product Development Scientist ID Irvin 07/20/24 02:29 Sodium 133 mmol/L (136-145) L 07/20/24 02:24 Potassium 4.1 mmol/L (3.5-5.1) 07/20/24 02:24 Chloride 93 mmol/L (98-107) L 07/20/24 02:24 Carbon Dioxide 17 mmol/L (22-29) L 07/20/24 02:24 Anion Gap 27.1 (5-19) H 07/20/24 02:24 BUN 54 mg/dL (8-23) H 07/20/24 02:24 Creatinine 2.3 mg/dL (0.7-1.2) H 07/20/24 02:24 GFR Calculation Not Reportable 07/20/24 02:24 Glucose 210 mg/dL (65-115) H 07/20/24 02:24 Calculated Osmolality 297 mOsm/kg (285-295) H 07/20/24 02:24 Lactic Acid 2.1 mmol/L (0.5-2.2) 07/20/24 04:58 Calcium 8.8 mg/dL (8.5-10.5) 07/20/24 02:24 Magnesium 2.3 mg/dL (1.7-2.3) 07/20/24 02:24 Total Bilirubin 2.1 mg/dL (0.15-1.2) H 07/20/24 02:24 AST 34 U/L (0-40) 07/20/24 02:24 ALT 21 U/L (0-41) 07/20/24 02:24 Alkaline Phosphatase 95 U/L (40-130) 07/20/24 02:24 Troponin T Baseline 1130 ng/L (0-15) H* 07/20/24 02:24 Troponin T 120 Minute 1249 ng/L (0-15) H 07/20/24 04:58 Delta Troponin T 119 ABS# (0-10) H* 07/20/24 04:58 NT-Pro-B Natriuret Pep 37379 pg/mL (0-125) H 07/20/24 02:24 Total Protein 5.7 g/dL (6.6-8.7) L 07/20/24 02:24 Albumin 3.7 g/dL (3.5-5.2) 07/20/24 02:24 Globulin 2.0 g/dL (1.3-4.6) 07/20/24 02:24 Procalcitonin 0.79 ng/mL (0-0.5) H 07/20/24 02:24 Serum Ketones Negative (Negative) 07/20/24 02:24 Coronavirus (PCR) Negative (Negative) 07/20/24 03:50 Influenza A (PCR) Negative (Negative) 07/20/24 03:50 Influenza Type B (PCR) Negative (Negative) 07/20/24 03:50 RSV (PCR) Negative (Negative) 07/20/24 03:50 All radiology interpretation(s) finalized by discharge Discharge Plan Discharge Patient Disposition: Admitted As Inpatient Clinical Impression: Acute hypoxic respiratory failure, Non-ST elevation DE (NSTEMI), Acute kidney insufficiency, D-dimer, elevated Acute exacerbation of CHF (congestive heart failure) Qualifiers: Heart failure type: unspecified Qualified Code(s): I50.9 - Heart failure, unspecified Condition: Stable Coding Level of Care Code ED Fur Cleaner for Melissa Nation
[2024-07-20 03:12] LABS: Troponin(5th) Baseline 1130 ng/L (0-15)
--- NOTE | 2024-07-20 03:22 | ECG_ITS ---
[facility] 2024-07[facility]20 Pat Name: Mingo Esparza Department: Room: Gender: Male Addressing Machine Operator: : 1950 Requested By: Nolan Lawrence Order Number: [id number] Demetrius MD: John Regan M.D. Measurements Intervals [place] Rate: 117 P: 21 WI: 154 QRS: 65 QRSD: 102 T: 212 QT: 348 QTc: 487 Interpretive Statements SINUS TACHYCARDIA NONSPECIFIC ST & T-WAVE ABNORMALITY Compared to ECG 01/24/2024 16:17:19 T-wave abnormality now present Sinus rhythm no longer present Left ventricular hypertrophy no longer present ST (T wave) deviation no longer present Myocardial infarct finding no longer present Electronically Signed On 07-22-2024 20:23:25 URBAN GARDENING SPECIALIST by John Regan M.D. [email or web address]
[2024-07-20 03:25] LABS: Alanine Aminotransferase 21 U/L (0-41); Albumin Level 3.7 g/dL (3.5-5.2); Alkaline Phosphatase 95 U/L (40-130); Anion Gap 27.1 (5-19); Aspartate Amino Transferase 34 U/L (0-40); Blood Urea Nitrogen 54 mg/dL (8-23); Calcium 8.8 mg/dL (8.5-10.5); Carbon Dioxide 17 mmol/L (22-29); Chloride 93 mmol/L (98-107); Creatinine Clr Calc Pharmacy 33.8095; Glucose 210 mg/dL (65-115); Magnesium 2.3 mg/dL (1.7-2.3); NT Pro B Type Natriuretic Pept 12813 pg/mL (0-125); Osmolality Calculated 297 mOsm/kg (285-295); Potassium 4.1 mmol/L (3.5-5.1); Sodium 133 mmol/L (136-145); Total Bilirubin 2.1 mg/dL (0.15-1.2); Total Protein 5.7 g/dL (6.6-8.7)
[2024-07-20 03:26] LABS: INR 1.72 (0.8-1.2)
[2024-07-20 03:28] LABS: D Dimer 3.56 ug/mLFEU (0-0.59)
[2024-07-20] MEDS: FUROsemide 10 mg/mL SDV 4mL 40 MG IVP ×3 (03:52→20:52)
[2024-07-20 03:55] LABS: Ketone (Acetest) Serum Negative (Negative)
[2024-07-20 04:07] LABS: Procalcitonin 0.79 ng/mL (0-0.5)
--- NOTE | 2024-07-20 04:25 | ECG_ITS ---
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 Measurements Intervals [place] Rate: 101 P: 45 NM: 155 QRS: 69 QRSD: 102 T: 90 QT: 392 QTc: 509 Interpretive Statements SINUS TACHYCARDIA NONSPECIFIC ST & T-WAVE ABNORMALITY ABNORMAL RHYTHM ECG Compared to ECG 07/20/2024 03:22:23 No significant changes Electronically Signed On 07-22-2024 20:35:35 MANAGER GLOBAL COMMUNICATIONS by John Regan M.D. [email or web address]
[2024-07-20 04:32] LABS: Covid PCR NEGATIVE (Negative); Influenza A NEGATIVE (Negative); Influenza B NEGATIVE (Negative); Respiratory Syncytial Virus Ce NEGATIVE (Negative)
[2024-07-20 05:22] LABS: Lactic Sepsis W/Reflex 2.1 mmol/L (0.5-2.2)
[2024-07-20 05:23] LABS: Troponin 5 2HR 1249 ng/L (0-15); Troponin 5 2HR Delta 119 ABS# (0-10)
[2024-07-20] MEDS: heparin 5,000 unit/mL INJ 1 mL IVP (05:35)
--- NOTE | 2024-07-20 05:35 | USCV_ITS ---
IsaiasMingo talbot Age: 73 Gender: M : 1950 Exam Date: 07/20/2024 11:53 Ordering Phys: Matty Hurt MD Technologist: Tae Granger [place] [facility] [place]: chf BP: 119 / 61 HR: 72 Rhythm: Sinus Technical Quality: Adequate MEASUREMENTS (Male / Female) Normal Values 2D ECHO LVOT Diameter 2.1 cm LV Ejection Fraction MOD 4C 40.7 % LV Ejection Fraction MOD 2C 38.8 % LV Ejection Fraction 2C AL 42.3 % LA Diameter 5.0 cm RA Systolic Volume 4C AL 59.4 ml RA Systolic Volume 4C MOD 54.7 ml LA Sys Volume AL 60.9 cm cubed LA Sys Volume Index AL 26.8 cm cubed/m squared Aorta at Sinotubular Diameter 2.7 cm IVC Diameter 2.2 cm M-MODE LA Ao Ratio MM 1.2 AV Cusp Separation MM 1.7 cm DOPPLER AV Peak Velocity 86.0 cm/s LVOT Peak Velocity 81.0 cm/s AV Area Cont Eq vti 3.0 cm squared AV Area Cont Eq pk 3.4 cm squared MV Peak Velocity 270.3 cm/s MV Area PHT 4.9 cm squared Mitral E to A Ratio 2.5 TV Peak Velocity 211.5 cm/s TR Peak Velocity 219.0 cm/s TR Peak Gradient 19.2 mmHg TR Mean Velocity 155.0 cm/s TR Mean Gradient 10.9 mmHg TR Velocity Time Integral 70.4 cm PV Peak Velocity 67.0 cm/s RV Ejection Time 0.2 s FINDINGS Left Ventricle Technically limited quality echocardiogram because of poor ultrasonic windows. LV systolic function is moderately reduced with EF of 35-40%. Regional wall motion abnormalities can not be accurately assessed because of limited quality images. Right Ventricle Grossly normal Right Atrium Grossly normal Left Atrium Grossly normal Mitral Valve Mild to moderate mitral regurgitation Aortic Valve Grossly normal. Mild aortic regurgitation Tricuspid Valve Insufficient TR jet to calculate RVSP Pulmonic Valve Not well visualized Pericardium Grossly normal Aorta Normal in size IVC Dilated CONCLUSIONS Technically limited quality echocardiogram because of poor ultrasonic windows LV systolic function is moderately reduced with EF of 35-40% Regional wall motion abnormalities can not be accurately assessed because of limited quality images. Mild to moderate mitral regurgitation Mild aortic regurgitation IVC is dilated Compared to prior echocardiogram from 01/2024, LV systolic function has decreased. John Regan MD (Electronically Signed) Final Date: 20 July 2024 15:48 S
--- NOTE | 2024-07-20 05:35 | USR_ITS ---
PROCEDURE INFORMATION: Exam: US Duplex Lower Extremity Veins, Bilateral Exam date and time: 07/20/2024 10:57 AM Age: 73 years old Clinical indication: Swelling (edema) of limb; Lower extremity, bilateral; Prior surgery; Surgery date: <1 month; Surgery type: Unable to visualize RT groin to the knee. Patient had bandages that extended through. TECHNIQUE: Imaging protocol: Real-time duplex ultrasound of the bilateral extremities with 2-D foster scale, color Doppler flow and spectral waveform analysis including responses to compression and other maneuvers (when performed) with image documentation. Complete exam focused on the lower extremity veins. COMPARISON: No relevant prior studies available. FINDINGS: Right deep veins: The right common femoral and superficial femoral arteries were unable to be evaluated secondary to overlying bandages. Otherwise, the deep venous system of the right lower extremity demonstrates normal flow, compressibility, and augmentation. Left deep veins: Unremarkable. The common femoral, femoral, proximal profunda femoral and popliteal veins are patent without thrombus. Normal Doppler waveforms. Normal compressibility and/or augmentation response. Superficial veins: Greater saphenous veins at the saphenofemoral junctions are patent bilaterally without thrombus. Soft tissues: Unremarkable. US/[place] [id number] IMPRESSION: 1. No intraluminal thrombus noted involving the visualized veins of both lower extremities. Please see above comments.
--- NOTE | 2024-07-20 05:37 | PM.HP ---
Providers/Chief Complaint Primary Care Provider: Dawit Mcallister MD Chief Complaint: CHEST PAIN History of Present Illness James Esparza is a 73 year old male with a past medical history of CABG x 4, history of CAD with stenting, history of hypertension, hyperlipidemia, type 2 diabetes, history of CHF, recent history of femoropopliteal bypass right lower extremity for peripheral arterial disease. 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 According to the family the surgery went well, but after surgery his respiratory status worsened went into respiratory failure, NSTEMI, elevated troponins, complaints of chest pain, shortness of breath, had a prolonged hospital stay prolonged ICU stay. According to patient's family, James is a DNR/DNI, agreed to hospice, [facility] had set up hospice to hosp[facility], and the family was told that he should have a BiPAP machine available to him as soon as he got home. According to family [facility] advised him that there is nothing that they could do for the heart, no significant interventions, given that all his bypass grafts were down, and the LAD had a lesion, and could not be intervened on, with his kidney function and respiratory status, they recommended against it recommended hospice. Family tells me that the BiPAP machine is the reason his shortness of breath improves, and helped with his shortness of breath and his respiratory failure at [facility] and according to them they were promised this by [facility] to be set up as soon as they got home. However when he got home [facility] advised him that it would take some time before they could get the BiPAP set up, they needed the BiPAP settings, they need a respiratory consult all which they did not have. Donovan got home on 07/19/2024 according to family, he was able to watch the football game, able to spend some time with his grandkids, and in the evening time started to complain of sudden onset shortness of breath, chest discomfort, little more unresponsive, similar to what happened at [facility]. Patient's family tells me that this happened at [facility] you have the cycles of having chest pain, shortness of breath requiring BiPAP. They asked Donovan if he wanted to come to the hospital and he said he did so they brought him here at [facility]. Currently James is alert to person, not to place, to time he can follow commands he complaints of shortness of breath but I cannot get significant history from him, currently on 100% BiPAP, saturating in the high 90s, normotensive, tachypnea, nasal flaring intercostal retractions suprasternal retractions and moderate to severe respiratory failure. Reviewed patient's blood work, imaging findings appears that patient has acute hypoxic respiratory failure from fluid overload, systolic CHF, NSTEMI and also appears that he has a healthcare associated pneumonia. Discussed with family the overall goals of care, James is a DNR/DNI and they understand this. I discussed with him that currently his status is critical, overall prognosis is poor. Discussed that I could give him a trial of diuretics, antibiotics, BiPAP therapy and to see how much his clinical condition improves. But with his NSTEMI, he has a high risk of morbidity and mortality, high risk of cardiac arrhythmias, high risk of suffering, high risk of overall poor prognosis. Overall they do not want James to suffer, when he was at home and he was in respiratory failure they had given him Ativan and had called hospice [facility] and the dose of Ativan was increased. They understand this however his tells me that they are not ready to take him home, they want to see how he does with a trial of medical therapy. I did discuss with him that I do not know how much his overall clinical condition will improve, he is on 100% BiPAP and moderate to severe respiratory failure there is a high risk that he dies here in the hospital. I will do my best to see how his respiratory status improves, but they should be ready that there is a high likelihood that he might pass away here. Even if his condition improves, the question is how much does it improve, and I cannot guarantee them that we can get BiPAP set up for home. Discussed with him the getting BiPAP set up at home is a difficult process, will reach out to hosp[facility] see where they are at in the process. It might not be possible and or if might take a prolonged time especially with the weekend and the holiday week coming up ahead. ER provider did discuss with cardiology about NSTEMI, given patient's prior coronary angiography, prior hospitalization, recommended medical management Review of Systems General: Reports: ROS unobtainable due to medical condition and ROS unobtainable due to mental status Resp: Reports: dyspnea Medications/Allergies Home Medications Medication Instructions Recorded Confirmed Last Taken Type aspirin 81 mg tablet,delayed 81 mg PO DAILY 09/12/23 04/15/24 03/18/24 19:30 History release lisinopril 10 mg tablet 10 mg PO DAILY 09/12/23 04/15/24 03/17/24 09:00 History multivitamin 1 tab PO DAILY 09/12/23 04/15/24 03/18/24 09:00 History vitamin E (dl, acetate) 450 mg 450 mg PO DAILY 09/12/23 04/15/24 03/18/24 09:00 History (1,000 unit) capsule empagliflozin 25 mg tablet 25 mg PO DAILY diabetes #90 tabs 03/12/24 04/15/24 03/17/24 09:00 Rx cyanocobalamin (vitamin B-12) 1,000 mcg PO DAILY 03/18/24 04/15/24 03/18/24 09:00 History 1,000 mcg tablet (Vitamin B-12) amlodipine 2.5 mg tablet 2.5 mg PO DAILY #90 tabs 03/27/24 04/15/24 Unknown Rx atorvastatin 40 mg tablet 40 mg PO DAILY #90 tabs 04/04/24 04/15/24 Unknown Rx cilostazol 50 mg tablet 50 mg PO BID #60 tabs 04/15/24 04/15/24 Unknown Rx ticagrelor 90 mg tablet 90 mg PO BID circulation #180 tabs 04/16/24 04/17/24 Unknown Rx tirzepatide 10 mg/0.5 mL 10 mg (0.5 mL) SUBCUT .once weekly 05/02/24 Unknown Rx subcutaneous pen injector #2 mL isosorbide mononitrate 120 mg 120 mg PO DAILY #90 tabs 05/23/24 Unknown Rx tablet,extended release 24 hr metformin 500 mg tablet 1,000 mg (2 x 500 mg) PO BID #180 06/24/24 Unknown Rx tabs metoprolol tartrate 50 mg tablet 50 mg PO BID #180 tabs 06/28/24 Unknown Rx nitroglycerin 0.4 mg sublingual 0.4 mg sublingual Q5M PRN chest 12/09/24 Unknown Rx tablet pain #10 tabs Allergies Allergy/AdvReac Type Severity Reaction Status Date / Time niacin Allergy ALGY-Redness Verified 04/15/24 14:21 of Skin ranolazine AdvReac Intermediate ALGY-Joint Verified 04/15/24 14:21 Pain PFSH Acute PFSH: Medical History Angina at rest CKD stage 2 due to type 2 diabetes mellitus Diabetes type 2, controlled Carpal tunnel syndrome, right Dyslipidemia associated with type 2 diabetes mellitus Coronary artery disease involving autologous artery coronary bypass graft Hypertension Surgical History S/P cervical discectomy Hx of cholecystectomy H/O heart bypass surgery Family History Father Cancer Breast Cancer Mother COPD (chronic obstructive pulmonary disease) Social History Smoking and tobacco/nicotine status: former use of tobacco/nicotine Second hand smoke exposure: No Alcohol intake: current Alcohol intake frequency: holidays/special occasions only Substance/Drug Use: never Adopted: No Caregiver/support person: No Lives independently: Yes Household members: spouse Housing: House Marital status: Number of children: 2 service: No Current occupational status: retired Current occupational exposures/hazards: No Pets and animals: No Do you think of yourself as: Straight/Heterosexual Current gender identity: Male Vitals/I&O/Wt Last Vital Signs Temp 99.5 F 07/20/24 02:24 Pulse 119 H 07/20/24 02:48 Resp 30 H 07/20/24 02:24 BP 127/69 07/20/24 02:24 Pulse Ox 99 07/20/24 02:48 O2 Del Method Non-Rebreather 07/20/24 02:24 O2 Flow Rate 15 07/20/24 02:24 FiO2 100 07/20/24 02:48 07/19/24 07/19/24 07/20/24 14:59 22:59 06:59 Intake Total 100 / 100 Balance 100 / 100 Weight last 48 hrs Weight 99.79 kg Physical Exam Const: EXAM LIMITATIONS: altered mental status GENERAL APPEARANCE: lethargic and ill appearing ORIENTATION/CONSCIOUSNESS: Yes awake, Yes oriented to person and Yes confused; not oriented to place and not oriented to time HENMT: COMMON NORMALS: normocephalic HEAD & SCALP: normocephalic Eye: COMMON NORMALS: Equal, round and reactive pupils present Lymph: LYMPHATIC: no lymphadenopathy noted Resp: EFFORT & INSPECTION: Yes abnormal respiratory pattern, Yes tachypneic, Yes respiratory distress, Yes retractions and Yes uses accessory muscles AUSCULTATION: crackles and wheezes Cardio: COMMON NORMALS: regular rate, regular rhythm, S1 normal heart sound present and S2 normal heart sound present RATE: tachycardic RHYTHM: regular rhythm HEART SOUNDS: S1 normal heart sound present and S2 normal heart sound present GI: OTHER: Abdomen soft, distended, no guarding, no rebound, no rigidity, good bowel sounds all 4 quadrants : COMMON NORMALS: Yes no CVA tenderness Extremity: NARRATIVE EXTREMITY EXAM: 2+ eedma, dp/pt pulses diminished, slightly cool to touch, but pink, fleshy, No mottling Neuro: OTHER: Moves bilateral upper and lower extremities, Skin: NARRATIVE SKIN EXAM: Right lower extremity femoropopliteal bypass site -Right leg site, measuring 5 cm long, sutures in place, clean and dry -The right thigh, measuring 10 cm long sutures were placed, some areas noted to sutures have pulled apart, but clean and dry, RUSLAN drain in place Sepsis: Is patient septic: Yes Focused sepsis exam performed: Yes Focused sepsis exam: DP PT pulses palpable but diminished, slightly cool to touch, no mottling Date exam was performed: 07/20/24 Time exam was performed: 06:06 Data 07/20/24 02:24 07/20/24 02:24 Micro: Microbiology 07/20/24 04:58 Blood Culture - Preliminary Blood SPECIMEN COLLECTED 07/20/24 05:00 Blood Culture - Preliminary Blood SPECIMEN COLLECTED A&P Assessment and plan (1) Acute hypoxic respiratory failure: (2) Acute exacerbation of CHF (congestive heart failure): Qualifiers: Heart failure type: unspecified Qualified Code(s): I50.9 - Heart failure, unspecified (3) D-dimer, elevated: (4) Angina at rest: (5) Coronary artery disease involving autologous artery coronary bypass graft: Qualifiers: Associated angina: with stable angina Qualified Code(s): I25.728 - Atherosclerosis of autologous artery coronary artery bypass graft(s) with other forms of angina pectoris (6) Healthcare-associated pneumonia: (7) CKD stage 2 due to type 2 diabetes mellitus: (8) Acute kidney insufficiency: (9) Acute respiratory distress: (10) Sepsis: Plan Acute hypoxic respiratory failure -With acute respiratory distress -Secondary to CHF, systolic, ischemic cardiomyopathy -Secondary to healthcare associated pneumonia -Possible hypercoagulable event such as PE? Given recent femoropopliteal bypass, relative immobility, sudden onset shortness of breath, D-dimer 3.56, 100% BiPAP requirement Plan -Currently on 100% BiPAP, monitored in the ICU -Vancomycin -Meropenem -Blood cultures -DuoNeb -Lasix 40 mg IV twice daily -Cardiac echo -Given his complaints of sudden onset shortness of breath, cannot do a CT angiogram of the chest given patient's creatinine, continue heparin drip as below for concerns for possible hypercoagulable event, elevated D-dimer, venous ultrasound -Continue heparin drip -Monitor respiratory status closely -Discussed with family overall prognosis is poor, they understand his morbidity and mortality -Status is critical -He is on hospice -Family wants to do trial of medical therapy -DNR/DNI -Heparin drip for DVT prophylaxis Sepsis secondary to healthcare associated ammonia -Leukocytosis, elevated Pro-Tigre, CRP, elevated creatinine, source infection pneumonia, respiratory failure 100% BiPAP ANDRE on CKD -Creatinine 2.2, monitor History of CAD, history of CABG -Reviewed records from [facility] -In 11/12/2021 underwent coronary angiography -Was found to have severe two-vessel CAD involving RCA and left circumflex, patent stent in the left main with a stent extending into the LAD, there is mild in-stent restenosis ? Occluded vein graft to RCA, LAD ? Severe distal edge in stent restenosis of the VG to the obtuse marginal branch, status post primary stenting with drug-eluting stent ? Echocardiogram 11/13/2021 showed EF function within normal limits, grade 1 diastolic dysfunction -Will request medical records from [facility] NSTEMI -Serial EKGs, serial troponins, telemetry monitoring -Continue aspirin, statin, Brilinta, -Continue heparin drip -Cardiac echocardiogram ordered -Request medical records from [facility] -Will consult cardiology in the morning Right lower extremity peripheral arterial disease with femoropopliteal bypass graft -Has sutures in place in the groin site, right thigh -Area looks clean and dry, has a RUSLAN drain in place -Discussed with family that we do not have vascular surgery available here at [facility], they are agreeable to medical interventions for now -Continue to measure DP PT pulses Currently on hospice -Continue morphine as needed -Ativan as needed -Patient was agitated with the BiPAP mask, family tells me that at [facility] he had similar agitations with the BiPAP mask Precedex helped, will start him on a precedex drip Type 2 diabetes mellitus, low-dose sliding scale Attestations Medical Necessity Statement*: Patient requires hospitalization, inpatient, greater than 2 midnights, for acute hypoxic respiratory failure, acute respiratory distress syndrome, healthcare associated pneumonia, CHF, NSTEMI, ANDRE, sepsis Coding Level of Care Code Critical Care >/= 30 minutes Critical care time (in minutes): 45 The high probability of a clinically significant, sudden or life threatening deterioration, as referenced in this documentation, required my full and direct attention, intervention and personal management. The critical care time shown is in addition to time spent performing any reported separately billable procedures and includes the following: [x] Data and vital sign review and interpretation [x] Patient assessment, examination and intervention [x] Medication orders and management [x] Patient/Family updates as able [x] Care Coordination and Documentation. Diagnoses Acute hypoxic respiratory failure J96.01 Acute exacerbation of CHF (congestive heart failure) I50.9 Heart failure type: unspecified D-dimer, elevated R79.89 Angina at rest I20.89 Coronary artery disease of autologous bypass graft with stable angina pectoris I25.728 Associated angina: with stable angina Healthcare-associated pneumonia J18.9 CKD stage 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
[2024-07-20] MEDS: heparin drip 25,000 UNIT/500 ML PREMIX 27.94 UNIT IV (05:52)
[2024-07-20 05:55] LABS: C Reactive Protein 141.4 mg/L (0.0-4.9)
[2024-07-20] MEDS: meropenem 500 mg SDV IVP ×2 (05:57→17:24)
[2024-07-20 06:01] LABS: Procalcitonin 0.86 ng/mL (0-0.5)
[2024-07-20] MEDS: vancomycin 2,000 MG/400 ML PIGGYBACK 200 MG IV (06:18)
[2024-07-20 06:50] LABS: Reflex Lactate Order REFLEX LACTIC ORDERD
--- NOTE | 2024-07-20 07:15 | PC.NURSE ---
took over pt care from ALISHA Pittman @ [phone]
--- NOTE | 2024-07-20 08:13 | PHA.VACGOAL ---
Vancomycin Goal - Goal Vancomycin Goal:: 15-20 mg/L Vancomycin Indication:: Pneumonia - Therapy Current therapy:: Meropenem Day of therpy:: Day 1 of [] Actual body weight (kg): 220 lb - Data Labs: WBC 16.24 10^3/uL (3.29-11.43) H 07/20/24 02:24 RBC 4.06 10^6/uL (3.85-5.65) 07/20/24 02:24 Hgb 11.20 g/dL (11.27-16.99) L 07/20/24 02:24 Hct 36.5 % (37-53) L 07/20/24 02:24 MCV 89.9 fl (82-101) 07/20/24 02:24 MCH 27.6 pg (27-33) 07/20/24 02:24 MCHC 30.7 g/dL (30-55) 07/20/24 02:24 RDW 17.9 % (12.1-15.1) H 07/20/24 02:24 Sodium 133 mmol/L (136-145) L 07/20/24 02:24 Potassium 4.1 mmol/L (3.5-5.1) 07/20/24 02:24 Chloride 93 mmol/L (98-107) L 07/20/24 02:24 Carbon Dioxide 17 mmol/L (22-29) L 07/20/24 02:24 Anion Gap 27.1 (5-19) H 07/20/24 02:24 BUN 54 mg/dL (8-23) H 07/20/24 02:24 Creatinine 2.3 mg/dL (0.7-1.2) H 07/20/24 02:24 GFR Calculation Not Reportable 07/20/24 02:24 Last dialysis session:: N/A Treatment plan:: new consult Regimen:: TELEPHARMACY: LOADING DOSE OF 2g GIVEN 07/20 @0600 MAINTENANCE DOSE 1500 MG Q36H Follow up:: WILL CONTINUE TO MONITOR AND FOLLOW UP DAILY
[2024-07-20 08:38] LABS: Estmated Average Glucose 134; Hemoglobin A1C 6.3 % (4.0-6.0)
[2024-07-20 08:44] LABS: Thyroid Stimulating Hormone 1.77 uIU/mL (0.27-4.20)
[2024-07-20 08:45] LABS: Glucose Point of Care 183 mg/dL (70-110)
[2024-07-20] MEDS: insulin lispro 100 unit/1 mL SUBCUT (09:01)
[2024-07-20] MEDS: pantoprazole 40 mg SDV IVP (09:01)
[2024-07-20] MEDS: cilostazol 100 mg Tablet 50 MG PO ×2 (09:03→17:24)
[2024-07-20] MEDS: aspirin 81 mg EC Tablet PO (09:03)
[2024-07-20] MEDS: ticagrelor 90 mg Tablet PO ×2 (09:03→17:24)
[2024-07-20] MEDS: atorvastatin 40 mg Tablet PO (09:03)
[2024-07-20] MEDS: metoprolol tartrate 50 mg Tablet PO (09:03)
[2024-07-20] MEDS: dexmedeTOMIDine 0.9 % NaCL 400 MCG/100 ML PREMIX IV (09:15)
--- NOTE | 2024-07-20 09:41 | ECG_ITS ---
[facility] Date: 2024-07-20 Pat Name: Mingo Esparza Department: Room: [facility] Gender: Male Him Clerk: : 1950 Requested By: Nolan Lawrence Order Number: [id number] Demetrius MD: John Regan M.D. Measurements Intervals [place] Rate: 79 P: -12 FL: 108 QRS: 61 QRSD: 96 T: 151 QT: 392 QTc: 451 Interpretive Statements SINUS RHYTHM WITH SHORT FL INTERVAL ST DEVIATION AND MODERATE T-WAVE ABNORMALITY, CONSIDER LATERAL ISCHEMIA [-0.1+ mV T-WAVE IN I/aVL/V5/V6] Compared to ECG 07/20/2024 04:50:20 Short FL interval now present Possible ischemia now present Sinus tachycardia no longer present T-wave abnormality still present Electronically Signed On 07-22-2024 20:34:58 RESIDENTIAL SUBSTANCE ABUSE COUNSELOR by John Regan M.D. [email or web address]
[2024-07-20 10:26] LABS: Troponin 5 6HR 1352 ng/L (0-15); Troponin 5 6HR Delta 222 ng/L (0-12)
[2024-07-20 10:40] LABS: Lactic Acid level (Lactate) 1.9 mmol/L (0.5-2.2)
[2024-07-20 11:26] LABS: Glucose Point of Care 146 mg/dL (70-110)
[2024-07-20] MEDS: morphine 4 mg/mL SDV 1 mL 2 MG IVP ×3 (12:32→21:15)
--- NOTE | 2024-07-20 15:11 | P.MISC_ITS ---
Miscellaneous Note Purpose of Documentation: Overnight labs and H&P reviewed. Patient continues to do poorly. Elevated t roponins in the 1000 range with significant delta at 2 and 6 hours. Echocardiogram is still pending. Leukocytosis at 16,000. Continuing antibiotics due to concern for possible HCAP. Elevated D-dimer which may be elevated as a result of AMI. Patient continues to be short of breath. Not able to tolerate being off BiPAP for a few seconds. Oxygen saturation immediately dropped to the low 80s with a break on BiPAP. Kidney function at 2.3. Poor urine output in spite of being on diuretics. Chest x-ray showing bilateral congestion. Will need to clarify goals of care extensively with family. We are going to administer morphine for air hunger that patient is exhibiting currently. This may be associated with a drop in blood pressure which will necessitate starting pressor support. If he continues to be extremely short of breath, consideration also for starting nitroglycerin infusion again with potential drop in blood pressure which would necessitate use of pressors. We need to find out if this is all compatible with patient's overall goals of care. Patient unable to talk to me long enough to discuss these issues. I called his to clarify, she states she is on her way to the hospital and will have an in person discussion at that time.
[2024-07-20 15:16] LABS: Partial Thromboplastin Time 167.5 SECONDS (23.9-36.7)
--- NOTE | 2024-07-20 16:13 | PC.NURSE ---
Family expressed that they do not want the levophed started for his blood pressure. They are just concerned about his comfort and him not feeling like he is smothering. Notified family that Dr. Pearson is going to come down and talk to them about the goals of care for this patient.
[2024-07-20] MEDS: ipratropium-albuterol 3 mL Neb INHALATION (16:27)
[2024-07-20 16:51] LABS: Glucose Point of Care 143 mg/dL (70-110)
[2024-07-20 21:20] LABS: Glucose Point of Care 161 mg/dL (70-110)
[2024-07-21] VITALS (15 sets, daily range): BP systolic 97–106; BP diastolic 47–61; PULSE 0–97; RESP 0–30; TEMP 36.4–36.7; O2SAT 93–95
[2024-07-21] MEDS: LORazepam 2 mg/mL INJ 1 mL IVP ×5 (00:12→16:28)
--- NOTE | 2024-07-21 01:19 | PC.NURSE ---
MS transfer Order received for transfer to [place] from Dr. Hurt.
--- NOTE | 2024-07-21 01:32 | PC.NURSE ---
Addendum entered by Anne-Marie Preciado RN 07/21/24 01:45: Transported pt via bed to [facility], nurse at bedside along with patient's . Original Note: Received verbal orders from Dr. Hurt to transfer pt to [facility]. Report called to ALISHA Monahan.
[2024-07-21] MEDS: morphine 4 mg/mL SDV 1 mL IVP ×14 (06:10→21:07)
[2024-07-21 06:25] LABS: Glucose Point of Care 135 mg/dL (70-110)
[2024-07-21 10:39] LABS: Glucose Point of Care 125 mg/dL (70-110)
--- NOTE | 2024-07-21 14:55 | P.PN_ITS ---
Subjective 2 Subjective: Hospital course, labs appreciated. Seen with multiple family was at bedside. Patient awake and alert, comfortable. Vitals/I&O/Wt Last Vital Signs Temp 98.1 F 07/21/24 07:52 Pulse 97 07/21/24 07:52 Resp 24 H 07/21/24 14:18 BP 106/61 07/21/24 07:52 Pulse Ox 95 07/21/24 10:29 O2 Del Method Nasal Cannula 07/21/24 07:52 O2 Flow Rate 2 07/21/24 00:00 FiO2 40 07/20/24 16:25 07/20/24 07/21/24 07/21/24 22:59 06:59 14:59 Intake Total 620 / 1228.073 273.959 / 1502.032 480 / 480 Output Total 1680 / 1680 1550 / 3230 900 / 900 Balance -1060 / -451.927 -1276.041 / -1727.968 -420 / -420 Weight last 48 hrs Weight 103.238 kg Weight 103 kg Weight 99.79 kg Physical Exam 2 Narrative: Examination deferred given comfort care status. Urinary Catheter Management: Baker: Cath Placed During This Visit: no Reason for Continuing Indwelling Catheter: Hospice/Comfort/Palliative Care Data 07/20/24 02:24 07/20/24 02:24 Micro: Microbiology 07/20/24 04:58 Blood Culture - Preliminary Blood NEGATIVE TO DATE 07/20/24 05:00 Blood Culture - Preliminary Blood NEGATIVE TO DATE A&P Assessment and plan (1) Acute hypoxic respiratory failure: (2) Acute exacerbation of CHF (congestive heart failure): Qualifiers: Heart failure type: unspecified Qualified Code(s): I50.9 - Heart failure, unspecified (3) D-dimer, elevated: (4) Angina at rest: (5) Coronary artery disease involving autologous artery coronary bypass graft: Qualifiers: Associated angina: with stable angina Qualified Code(s): I25.728 - Atherosclerosis of autologous artery coronary artery bypass graft(s) with other forms of angina pectoris (6) Healthcare-associated pneumonia: (7) CKD stage 2 due to type 2 diabetes mellitus: (8) Acute kidney insufficiency: (9) Acute respiratory distress: (10) Sepsis: Plan Acute hypoxic respiratory failure -With acute respiratory distress -Secondary to CHF, systolic, ischemic cardiomyopathy -Secondary to healthcare associated pneumonia -Possible hypercoagulable event such as PE? Given recent femoropopliteal bypass, relative immobility, sudden onset shortness of breath, D-dimer 3.56, 100% BiPAP requirement Plan -Currently on 100% BiPAP, monitored in the ICU -Vancomycin -Meropenem -Blood cultures -DuoNeb -Lasix 40 mg IV twice daily -Cardiac echo -Given his complaints of sudden onset shortness of breath, cannot do a CT angiogram of the chest given patient's creatinine, continue heparin drip as below for concerns for possible hypercoagulable event, elevated D-dimer, venous ultrasound -Continue heparin drip -Monitor respiratory status closely -Discussed with family overall prognosis is poor, they understand his morbidity and mortality -Status is critical -He is on hospice -Family wants to do trial of medical therapy -DNR/DNI -Heparin drip for DVT prophylaxis Sepsis secondary to healthcare associated ammonia -Leukocytosis, elevated Pro-Tigre, CRP, elevated creatinine, source infection pneumonia, respiratory failure 100% BiPAP ANDRE on CKD -Creatinine 2.2, monitor History of CAD, history of CABG -Reviewed records from [facility] -In 11/12/2021 underwent coronary angiography -Was found to have severe two-vessel CAD involving RCA and left circumflex, patent stent in the left main with a stent extending into the LAD, there is mild in-stent restenosis ? Occluded vein graft to RCA, LAD ? Severe distal edge in stent restenosis of the VG to the obtuse marginal branch, status post primary stenting with drug-eluting stent ? Echocardiogram 11/13/2021 showed EF function within normal limits, grade 1 diastolic dysfunction -Will request medical records from [facility] NSTEMI -Serial EKGs, serial troponins, telemetry monitoring -Continue aspirin, statin, Brilinta, -Continue heparin drip -Cardiac echocardiogram ordered -Request medical records from [facility] -Will consult cardiology in the morning Right lower extremity peripheral arterial disease with femoropopliteal bypass graft -Has sutures in place in the groin site, right thigh -Area looks clean and dry, has a RUSLAN drain in place -Discussed with family that we do not have vascular surgery available here at [facility], they are agreeable to medical interventions for now -Continue to measure DP PT pulses Currently on hospice -Continue morphine as needed -Ativan as needed -Patient was agitated with the BiPAP mask, family tells me that at [facility] he had similar agitations with the BiPAP mask Precedex helped, will start him on a precedex drip Type 2 diabetes mellitus, low-dose sliding scale Plan for the day: Patient transitioned over to comfort care yesterday evening. Continue treatment as per comfort care status. No blood work. Vitals as per protocol. We will consult case management in a.m. for safe and comfortable discharge planning. Care discussed in detail with patient's family members at bedside. All the questions were answered. Attestations 2 Medical Necessity Statement*: Requires further hospitalization for comfort care measures in a patient with advanced CAD post CABG, hypoxic respiratory failure in setting of congestive heart failure, non-ST elevation CT, PAD with femoral popliteal bypass. Diagnoses Acute hypoxic respiratory failure J96.01 Acute exacerbation of CHF (congestive heart failure) I50.9 Heart failure type: unspecified D-dimer, elevated R79.89 Angina at rest I20.89 Coronary artery disease of autologous bypass graft with stable angina pectoris I25.728 Associated angina: with stable angina Healthcare-associated pneumonia J18.9 CKD stage 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
[2024-07-21] MEDS: atropine 1% op soln 2 mL Btl 3 DROP SUBLINGUAL (17:39)
--- NOTE | 2024-07-21 22:59 | PC.NURSE ---
Family came to desk and notified RN that patient had passed. This nurse and tire finisher confirmed absence of heart rate and respirations. TOD 2250. Family members at bedside educated that they can spend as much time with the patient as needed. Dr. Hurt notified by this nurse at [phone], data warehouse specialist notified by tire finisher, tire finisher notifying MTS.
--- NOTE | 2024-07-22 | PC.NURSE ---
[facility] Coordinator Margy called 07/21/24 [phone] and released patient, hold for saving sight.
--- NOTE | 2024-07-22 01:16 | PC.NURSE ---
[facility] called, patient is not an eligible donor, released patient.
--- NOTE | 2024-07-22 01:17 | PC.NURSE ---
Post-mortem care completed.
--- NOTE | 2024-07-22 03:09 | PC.NURSE ---
Patient taken to [facility] at 0300.
--- NOTE | 2024-07-22 03:23 | PC.NURSE ---
Pt placed in outside [facility] @ [phone]
--- NOTE | 2024-07-22 10:09 | P.DES_ITS ---
Discharge Providers DDS Date of Admission: 07/20/24 05:28 Date Summary Completed: 07/22/24 Attending Provider at Admission: Matty Hurt MD Time of : 22:50 Attending Provider at Discharge: Alex Quinones MD Primary Care Provider: Dawit Mcallister MD DS Diagnoses Hospital Diagnoses (1) Acute hypoxic respiratory failure: (2) Acute exacerbation of CHF (congestive heart failure): Qualifiers: Heart failure type: unspecified Qualified Code(s): I50.9 - Heart failure, unspecified (3) D-dimer, elevated: (4) Angina at rest: (5) Coronary artery disease involving autologous artery coronary bypass graft: Qualifiers: Associated angina: with stable angina Qualified Code(s): I25.728 - Atherosclerosis of autologous artery coronary artery bypass graft(s) with other forms of angina pectoris (6) Healthcare-associated pneumonia: (7) CKD stage 2 due to type 2 diabetes mellitus: (8) Acute kidney insufficiency: (9) Acute respiratory distress: (10) Sepsis: Reason for Visit Reason for Visit CHEST PAIN Summary Date and Time of Date of : 07/21/24 Time of : 22:50 Summary Summary: James Esparza is a 73 year old male with a past medical history of CABG x 4, history of CAD with stenting, history of hypertension, hyperlipidemia, type 2 diabetes, history of CHF, recent history of femoropopliteal bypass right lower extremity for peripheral arterial disease. Patient is originally from [place], he had his open heart surgery in [place], he also was in [place] recently, he followed up with [facility] in [place], he follows up with the [facility] he re at [facility], he was admitted to [facility] on 06 July for femoropopliteal bypass surgery of right lower extremity. According to the family the surgery went well, but after surgery his respiratory status worsened went into respiratory failure, NSTEMI, elevated troponins, complaints of chest pain, shortness of breath, had a prolonged hospital stay prolonged ICU stay. According to patient's family, James is a DNR/DNI, agreed to hospice, [facility] had set up hospice to [facility], and the family was told that he should have a BiPAP machine available to him as soon as he got home. According to family [facility] advised him that there is nothing that they could do for the heart, no significant interventions, given that all his bypass grafts were down, and the LAD had a lesion, and could not be intervened on, with his kidney function and respiratory status, they recommended against it recommended hospice. Family tells me that the BiPAP machine is the reason his shortness of breath improves, and helped with his shortness of breath and his respiratory failure at [facility] and according to them they were promised this by [facility] to be set up as soon as they got home. However when he got home [facility] advised him that it would take some time before they could get the BiPAP set up, they needed the BiPAP settings, they need a respiratory consult all which they did not have. Donovan got home on 07/19/2024 according to family, he was able to watch the football game, able to spend some time with his grandkids, and in the evening time started to complain of sudden onset shortness of breath, chest discomfort, little more unresponsive, similar to what happened at [facility]. Patient's family tells me that this happened at [facility] you have the cycles of having chest pain, shortness of breath requiring BiPAP. They asked Donovan if he wanted to come to the hospital and he said he did so they brought him here at [facility]. Currently James is alert to person, not to place, to time he can follow commands he complaints of shortness of breath but I cannot get significant history from him, currently on 100% BiPAP, saturating in the high 90s, normotensive, tachypnea, nasal flaring intercostal retractions suprasternal retractions and moderate to severe respiratory failure. Reviewed patient's blood work, imaging findings appears that patient has acute hypoxic respiratory failure from fluid overload, systolic CHF, NSTEMI and also appears that he has a healthcare associated pneumonia. Discussed with family the overall goals of care, James is a DNR/DNI and they understand this. I discussed with him that currently his status is critical, overall prognosis is poor. Discussed that I could give him a trial of diuretics, antibiotics, BiPAP therapy and to see how much his clinical condition improves. But with his NSTEMI, he has a high risk of morbidity and mortality, high risk of cardiac arrhythmias, high risk of suffering, high risk of overall poor prognosis. Overall they do not want James to suffer, when he was at home and he was in respiratory failure they had given him Ativan and had called hospice [facility] and the dose of Ativan was increased. They understand this however his tells me that they are not ready to take him home, they want to see how he does with a trial of medical therapy. I did discuss with him that I do not know how much his overall clinical condition will improve, he is on 100% BiPAP and moderate to severe respiratory failure there is a high risk that he dies here in the hospital. I will do my best to see how his respiratory status improves, but they should be ready that there is a high likelihood that he might pass away here. Even if his condition improves, the question is how much does it improve, and I cannot guarantee them that we can get BiPAP set up for home. Discussed with him the getting BiPAP set up at home is a difficult process, will reach out to hosp[facility] see where they are at in the process. It might not be possible and or if might take a prolonged time especially with the weekend and the holiday week coming up ahead. ER provider did discuss with cardiology about NSTEMI, given patient's prior coronary angiography, prior hospitalization, recommended medical management. Patient was admitted for further management of respiratory failure with concerns for non-ST elevation HI. Given his significant history of CAD, concern for cardiogenic shock multiple further goals of care discussions were done with patient's DPOA/ and son at the bedside. Family decided to transition patient to comfort care again. He was started on comfort care measures. Patient eventually on 05/21 at 2250 hrs. in comfortable state with family at bedside. Additional Data Confirmation of as documented by pronouncing clinician: no pulse and no respirations Family: at bedside Additional persons at bedside: nursing staff Attending/PCP notified?: I am attending Was code activated?: No Autopsy requested?: No Advance directives?: Yes Hospice patient?: Yes Discharge Plan Discharge Patient Disposition: Condition: Stable Prescriptions: No Action aspirin 81 mg tablet,delayed release (DR/EC) 81 mg PO DAILY lisinopril 10 mg tablet 10 mg PO DAILY multivitamin Tablet 1 tab PO DAILY vitamin E (dl, acetate) 450 mg (1,000 unit) capsule 450 mg PO DAILY amlodipine 2.5 mg tablet 2.5 mg PO DAILY Qty: 90 3RF cilostazol 50 mg tablet 50 mg PO BID Qty: 60 5RF empagliflozin 25 mg tablet 25 mg PO DAILY Qty: 90 1RF atorvastatin 40 mg tablet 40 mg PO DAILY Qty: 90 3RF ticagrelor 90 mg tablet 90 mg PO BID Qty: 180 1RF tirzepatide 10 mg/0.5 mL pen injector 10 mg SUBCUT .once weekly Qty: 2 3RF isosorbide mononitrate 120 mg tablet extended release 24 hr 120 mg PO DAILY Qty: 90 3RF metformin 500 mg tablet 1,000 mg PO BID Qty: 180 1RF Hold Instructions: Resume on 03/22/24. metoprolol tartrate 50 mg tablet 50 mg PO BID Qty: 180 2RF nitroglycerin 0.4 mg tablet, sublingual 0.4 mg sublingual Q5M PRN (Reason: chest pain) Qty: 10 3RF Rx Instructions: do not exceed 3 doses per episode cyanocobalamin (vitamin B-12) [Vitamin B-12] 1,000 mcg Tablet 1,000 mcg PO DAILY ranolazine 500 mg tablet extended release 12 hr 500 mg PO BID Referrals: Dawit Mcallister MD [Primary Care Provider] - DS Attestations Time Spent in /Discharge Care*: greater than 30 min Quality - AMI: AMI present?: No Quality - Stroke: CVA present?: No Quality - VTE: VTE present?: No Deep Vein Thrombosis/Pulmonary Embolism Present on Admission: No Coding Level of Care Code Acute Code for [facility] Fwd Diagnoses Acute hypoxic respiratory failure J96.01 Acute exacerbation of CHF (congestive heart failure) I50.9 Heart failure type: unspecified D-dimer, elevated R79.89 Angina at rest I20.89 Coronary artery disease of autologous bypass graft with stable angina pectoris I25.728 Associated angina: with stable angina Healthcare-associated pneumonia J18.9 CKD stage 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
== END 2024-07-22 03:11 | disposition expired | DRG 871 ==
LOC: ER 05:22 → ICU 06:18 → MEDSURG 07-21 01:47
PROVIDERS: Student in an Organized Health Care Education/Training Program; Admitting Provider Family Medicine; Emergency Provider Emergency Medicine; PCP Family Medicine Adult Medicine; Visit Provider Student in an Organized Health Care Education/Training Program
DX: A41.9 Sepsis, unspecified organism (principal); I21.4 Non-ST elevation (NSTEMI) myocardial infarction; I50.21 Acute systolic (congestive) heart failure; J96.01 Acute respiratory failure with hypoxia; J18.9 Pneumonia, unspecified organism; I13.0 Hypertensive heart and chronic kidney disease with heart failure and stage 1 through stage 4 chronic kidney disease, or unspecified chronic kidney disease; N17.9 Acute kidney failure, unspecified; I25.118 Atherosclerotic heart disease of native coronary artery with other forms of angina pectoris; E78.5 Hyperlipidemia, unspecified; E11.51 Type 2 diabetes mellitus with diabetic peripheral angiopathy without gangrene; E11.22 Type 2 diabetes mellitus with diabetic chronic kidney disease; N18.2 Chronic kidney disease, stage 2 (mild); I25.2 Old myocardial infarction; Z66 Do not resuscitate; E87.70 Fluid overload, unspecified; Y95 Nosocomial condition; G56.01 Carpal tunnel syndrome, right upper limb; R57.0 Cardiogenic shock; I25.5 Ischemic cardiomyopathy; Z79.82 Long term (current) use of aspirin; Z79.84 Long term (current) use of oral hypoglycemic drugs; Z95.5 Presence of coronary angioplasty implant and graft; Z95.1 Presence of aortocoronary bypass graft; Z51.5 Encounter for palliative care; Z98.890 Other specified postprocedural states; Z80.3 Family history of malignant neoplasm of breast; Z90.49 Acquired absence of other specified parts of digestive tract; Z98.1 Arthrodesis status
CPT/HCPCS: 0241U; 36415; 36416; 36600; 51702; 71045; 80051; 80053; 82009; 82330; 82805; 82962; 83036; 83605; 83735; 83880; 84145; 84443; 84484; 85025; 85378; 85610; 85730; 86140; 87040; 93005; 93306; 93970; 94660; 96365; 96366; 96367; 96372; 96375; 99291; J1644; J1815; J1940; J2060; J2185; J2270; J2470; J3372